=== PATIENT | male | born 1930 | race Caucasian/White ===

== ENCOUNTER 2018-02-10 23:32 | Emergency (ER) | payer OTHER ==
[~2018-02-10] VITALS: Ht 167.6 cm; Wt 83.9 kg
[~2018-02-10 23:32] MED LIST: CRESTOR10 MG PO; GNP THERAPEUTI1 EACH; LEVOTHYROXINE PO; LO-DOSE ASPIRIN81 M1; MEVACOR 20 MG T20 MG; NORCO 5-325 TA1 EACH PO; TYLENOL EX-STR500 M2 PO
[2018-02-11 00:02] LABS: ABSOLUTE BASOPHILS 0.1 thou/uL (0.0-0.2); ABSOLUTE EOSINOPHILS 0.2 thou/uL (0.0-0.7); ABSOLUTE LYMPHOCYTES 2.6 thou/uL (0.8-5.3); ABSOLUTE MONOCYTES 0.9 thou/uL (0.0-1.2); ABSOLUTE NEUTROPHILS 4.6 thou/uL (1.6-8.1); BASOPHILS 1.1 %; HEMATOCRIT 40.1 % (42.0-52.0); HEMOGLOBIN 13.3 gm/dL (14.0-18.0); LYMPHOCYTES 31.2 %; MCH 30.2 pg (26.0-34.0); MCHC 33.3 g/dL (28.0-37.0); MCV 90.5 fL (80.0-100.0); MONOCYTES 10.7 %; MPV 7.4 fl. (7.2-11.1); NUCLEATED RBCS 0 /100WBC; PLATELET COUNT* 245 thou/uL (150-400); RBC 4.43 mil/uL (4.50-6.00); RDW-CV 14.2 % (10.5-14.5); WBC 8.4 thou/uL (4.0-11.0)
[2018-02-11 00:07] LABS: ANION GAP 6 mmol/L (7-16); BUN 30 mg/dL (7-18); CALCIUM 8.9 mg/dL (8.5-10.1); CHLORIDE 95 mmol/L (98-107); CO2 33 mmol/L (21-32); CREATININE 1.1 mg/dL (0.6-1.3); GLUCOSE 103 mg/dL (70-99); POTASSIUM 3.5 mmol/L (3.5-5.1); SODIUM 134 mmol/L (136-145)
[2018-02-11 00:13] LABS: APTT 27.8 Seconds (25.0-31.3); PROTIME 9.9 Seconds (9.20-11.50)
[2018-02-11 00:17] LABS: ALBUMIN 3.8 g/dL (3.4-5.0); ALKALINE PHOSPHATASE 63 U/L (46-116); LIPASE 200 U/L (73-393); NT-PRO BRAIN NAT PEPTIDE 37 pg/mL (<300); SGOT 24 U/L (15-37); SGPT 26 U/L (30-65); TOTAL BILIRUBIN 0.3 mg/dL (<0.1-1.0); TOTAL PROTEIN 7.2 g/dL (6.4-8.2); TROPONIN-I LEVEL <0.06 ng/mL (<0.06)
[2018-02-11] MEDS ORDERED: CARAFATE 1 GM TA1 GM PO (02:37)
[2018-02-11] MEDS ORDERED: ZPAK PO (02:37)
[2018-02-11 03:14] VITALS: BP 171/70
--- NOTE | 2018-02-12 14:40 | EKG ---
[place] [address] ELECTROCARDIOGRAM REPORT Name: WINGNATHANIEL Burciaga Room: [facility]#: [id number] Admission: 02/10/18 Attend Phys: Discharge: 02/11/18 Date of : 34 Report #: [id number] THIS REPORT FOR: //name// [facility] ED Test Date: 2018-02-10 Test Time: 23:36:53 Pat Name: NATHANIEL DIMAS Department: Room: Gender: M Supervisor Cutting Department: FRED : 1930 Requested By: Joslyn Foster Order Number: [id number] MD: Won Castillo Measurements Intervals [place] Rate: 64 P: 26 MN: 175 QRS: 15 QRSD: 104 T: 44 QT: 413 QTc: 426 Interpretive Statements Sinus rhythm Abnormal R-wave progression, early transition Baseline wander in lead(s) II,III,aVF Compared to ECG 05/05/2007 17:49:29 No significant changes Electronically Signed On 02-12-2018 14:40:40 CDT by Won Castillo [email or web address] <ELECTRONICALLY SIGNED> By: Won Castillo MD, [facility] 02/12/18 1440 2336 2336 Won Castillo MD, [facility] /EPI
== END 2018-02-11 03:15 | disposition home or self-care (01) ==
LOC: M.ERS 23:32
PROVIDERS: Personal Emergency Response Attendant
DX: K20.9 Esophagitis, unspecified (principal); J40 Bronchitis, not specified as acute or chronic; E78.5 Hyperlipidemia, unspecified; E03.9 Hypothyroidism, unspecified; Z88.0 Allergy status to penicillin

== ENCOUNTER 2018-06-06 09:27 | Inpatient (IN) | payer OTHER ==
[~2018-06-06] VITALS: Ht 167.6 cm; Wt 88.5 kg
[2018-06-06] VITALS (7 sets, daily range): BP systolic 116–188; BP diastolic 59–79
[~2018-06-06 09:27] MED LIST changes: +CARAFATE 1 GM TA1 GM PO; +ZPAK PO
[2018-06-06] MEDS ORDERED: MOBIC15 MG PO (09:38)
[2018-06-06] MEDS ORDERED: VITAMIN D3400 UNIT PO (09:38)
[2018-06-06] MEDS ORDERED: BAYER CHEWABLE81 MG PO (09:39)
[2018-06-06] MEDS ORDERED: FOLIC ACID1 MG PO (09:39)
[2018-06-06 10:02] LABS: ABSOLUTE BASOPHILS 0.1 thou/uL (0.0-0.2); ABSOLUTE EOSINOPHILS 0.1 thou/uL (0.0-0.7); ABSOLUTE LYMPHOCYTES 1.1 thou/uL (0.8-5.3); ABSOLUTE MONOCYTES 0.5 thou/uL (0.0-1.2); ABSOLUTE NEUTROPHILS 7.9 thou/uL (1.6-8.1); BASOPHILS 0.9 %; EOSINOPHILS 1.1 %; HEMATOCRIT 42.1 % (42.0-52.0); HEMOGLOBIN 13.8 gm/dL (14.0-18.0); LYMPHOCYTES 11.4 %; MCH 29.6 pg (26.0-34.0); MCHC 32.9 g/dL (28.0-37.0); MONOCYTES 5.5 %; MPV 7.6 fl. (7.2-11.1); NUCLEATED RBCS 0 /100WBC; PLATELET COUNT* 258 thou/uL (150-400); POLYS 81.1 %; RBC 4.67 mil/uL (4.50-6.00); RDW-CV 14.3 % (10.5-14.5); WBC 9.7 thou/uL (4.0-11.0)
[2018-06-06 10:16] LABS: ANION GAP 8 mmol/L (7-16); APTT 27.3 Seconds (25.0-31.3); BUN 19 mg/dL (7-18); CALCIUM 9.3 mg/dL (8.5-10.1); CHLORIDE 97 mmol/L (98-107); CO2 33 mmol/L (21-32); CREATININE 1.2 mg/dL (0.6-1.3); GLUCOSE 126 mg/dL (70-99); POTASSIUM 3.4 mmol/L (3.5-5.1); SODIUM 138 mmol/L (136-145)
[2018-06-06 10:25] LABS: ALBUMIN 3.9 g/dL (3.4-5.0); ALKALINE PHOSPHATASE 62 U/L (46-116); LIPASE 126 U/L (73-393); MAGNESIUM 1.7 mg/dL (1.8-2.4); NT-PRO BRAIN NAT PEPTIDE 84 pg/mL (<300); SGOT 23 U/L (15-37); SGPT 29 U/L (30-65); TOTAL BILIRUBIN 0.4 mg/dL (<0.1-1.0); TOTAL PROTEIN 7.4 g/dL (6.4-8.2); TROPONIN-I LEVEL <0.06 ng/mL (<0.06)
--- NOTE | 2018-06-06 17:12 | 2DMMODE ---
[place] [address] 2 D/M-MODE ECHOCARDIOGRAM Name: NATHANIEL DIMAS Patrica Room: [address] IN [facility]#: [id number] Admission: 06/06/18 Attend Phys: Nitin Flores Discharge: Date of : 32 Date of Service: 06/06/18 1712 Report #: [id number] THIS REPORT FOR: //name// APPROVED REPORT Study performed: 06/06/2018 16:22:08 EXAM: Comprehensive 2D, Doppler, and color-flow Echocardiogram Patient Location: In-Patient Room #: [facility] Status: routine BSA: 1.97 HR: 107 bpm BP: 137/59 mmHg Rhythm: NSR Other Information Study Quality: Good Indications Dyspnea 2D Dimensions IVSd: 13.46 (7-11mm) LVOT Diam: 24.26 (18-24mm) LVDd: 47.70 mm PWd: 13.25 (7-11mm) Ascending Ao: 33.60 (22-36mm) LVDs: 22.18 (25-40mm) Aortic Root: 38.57 mm Volumes Left Atrial Volume (Systole) LA ESV Index: 29.80 mL/m2 Aortic Valve AoV Peak Nitesh.: 1.51 m/s AO Peak Gr.: 9.13 mmHg LVOT Max P.04 mmHg AO Mean Gr.: 6.19 mmHg LVOT Mean P.77 mmHg LVOT Max V: 1.50 m/s AO V2 VTI: 30.13 cm LVOT Mean V: 1.00 m/s CHANDLER (VTI): 4.15 cm2 LVOT V1 VTI: 27.08 cm Mitral Valve E/A Ratio: 0.59 MV Decel. Time: 135.13 ms MV E Max Nitesh.: 0.81 m/[place] [address] 2 D/M-MODE ECHOCARDIOGRAM Name: NATHANIEL DIMAS Room: [address] IN [facility].#: [id number] Admission: 06/06/18 Attend Phys: Nitin Flores Discharge: Date of : 32 Date of Service: 06/06/18 1712 Report #: [id number] MV PHT: 39.19 ms MVA (PHT): 5.61 cm2 TDI E/Lateral E': 8.10 E/Medial E': 6.75 Medial E' Nitesh.: 0.12 m/s Lateral E' Nitesh.: 0.10 m/s Pulmonary Valve PV Peak Nitesh.: 1.30 m/s PV Peak Gr.: 6.81 mmHg Left Ventricle The left ventricle is normal size. There is normal LV segmental wall motion. Mild concentric left ventricular hypertrophy. Left ventricular systolic function is normal. The left ventricular ejection fraction is within the normal range. LVEF is >70%. Grade I - abnormal relaxation pattern. Right Ventricle The right ventricle is normal size. The right ventricular systolic function is normal. Atria The left atrium size is normal. The right atrium size is normal. Aortic Valve Mild aortic valve sclerosis. No aortic regurgitation is present. There is no aortic valvular stenosis. Mitral Valve The mitral valve is normal in structure. Trace mitral regurgitation. No evidence of mitral valve stenosis. Tricuspid Valve The tricuspid valve is normal in structure. Unable to assess PA pressure. Trace tricuspid regurgitation. Pulmonic Valve The pulmonary valve is normal in structure. There is no pulmonic valvular regurgitation. Great Vessels The aortic root is normal in size. IVC is normal in size and collapses >50% [place] [address] 2 D/M-MODE ECHOCARDIOGRAM Name: NATHANIEL DIMAS Room: [address]#: [id number] Admission: 06/06/18 Attend Phys: Nitin Flores Discharge: Date of : 32 Date of Service: 06/06/18 1712 Report #: [id number] Pericardium There is no pericardial effusion. <Conclusion> Mild concentric left ventricular hypertrophy. LVEF is >70%. There is normal LV segmental wall motion. Mild aortic valve sclerosis. There is no aortic valvular stenosis. No aortic regurgitation is present. No evidence of mitral valve stenosis. Trace mitral regurgitation. <ELECTRONICALLY SIGNED> By: Reynaldo Kim MD, FACC 06/06/181711 11 11 Reynaldo Kim MD, FACC /INF
[2018-06-06 22:08] LABS: GLYCOHEMOGLOBIN (HGB A1C) 6.5 % (4.8-5.6)
[2018-06-06 22:36] LABS: URINE BILIRUBIN NEGATIVE (Negative); URINE BLOOD TRACE (Negative); URINE CLARITY CLEAR; URINE COLOR YELLOW; URINE GLUCOSE-RANDOM 2+ (Negative); URINE KETONES NEGATIVE (Negative); URINE LEUKOCYTES NEGATIVE (Negative); URINE NITRITE NEGATIVE (Negative); URINE PROTEIN NEGATIVE (Negative); URINE SPECIFIC GRAVITY 1.015 (1.005-1.030); URINE UROBILINOGEN 0.2 E.U./dl (0.2-1.0)
[2018-06-07] VITALS: BP 138/52
[2018-06-07 04:00] VITALS: BP 153/69
[2018-06-07 06:02] LABS: MAGNESIUM 1.9 mg/dL (1.8-2.4)
[2018-06-07 06:04] LABS: POTASSIUM 4.6 mmol/L (3.5-5.1)
[2018-06-07 08:30] VITALS: BP 144/53
--- NOTE | 2018-06-07 10:48 | EKG ---
[place] [address] ELECTROCARDIOGRAM REPORT Name: NATHANIEL DIMAS Patrica Room: [address] ADM IN M.R.#: [id number] Admission: 06/06/18 Attend Phys: Jeyson Huggins Discharge: Date of : 32 Report #: [id number] THIS REPORT FOR: //name// [facility] ED Test Date: 2018-06-06 Test Time: 09:32:51 Pat Name: NATHANIEL DIMAS Department: Room: [facility] Gender: M Enrollment Nurse: : 1930 Requested By: Harley Haynes Order Number: [id number] MD: Fidel Hooper Measurements Intervals [place] Rate: 107 P: 67 NC: 195 QRS: 36 QRSD: 99 T: 45 QT: 334 QTc: 446 Interpretive Statements Sinus tachycardia Probable left atrial enlargement wandering baseline Compared to ECG 02/10/2018 23:36:53 Sinus rhythm no longer present Electronically Signed On 06-07-2018 10:48:14 CDT by Fidel Hooper [email or web address] <ELECTRONICALLY SIGNED> By: Fidel Hooper MD, FAC 06/07/18 1048 0932 0932 Fidel Hooper MD, [facility] /EPI
[2018-06-07 11:41] VITALS: BP 144/64
[2018-06-07 12:36] LABS: BE -1.6 mmol/L (-2 to +3); HCO3 23.3 mmol/L (22.0-26.0); PCO2 39.8 mmHg (35.0-45.0); PO2 109.3 mmHg (75.0-100.0); pH 7.385 (7.340-7.450)
[2018-06-07 16:32] VITALS: BP 151/66
[2018-06-07 19:45] VITALS: BP 162/58
[2018-06-07 21:52] LABS: URINE BILIRUBIN NEGATIVE (Negative); URINE BLOOD TRACE (Negative); URINE CLARITY CLEAR; URINE COLOR YELLOW; URINE GLUCOSE-RANDOM NEGATIVE (Negative); URINE KETONES NEGATIVE (Negative); URINE LEUKOCYTES NEGATIVE (Negative); URINE NITRITE NEGATIVE (Negative); URINE PROTEIN NEGATIVE (Negative); URINE SPECIFIC GRAVITY 1.015 (1.005-1.030); URINE UROBILINOGEN 0.2 E.U./dl (0.2-1.0)
[2018-06-07 22:09] LABS: CREATININE 1.5 mg/dL (0.6-1.3); POTASSIUM 3.9 mmol/L (3.5-5.1)
[2018-06-08] VITALS: BP 146/61
[2018-06-08 03:31] LABS: HEMATOCRIT 36.7 % (42.0-52.0); MCH 29.5 pg (26.0-34.0); MCHC 32.8 g/dL (28.0-37.0); RBC 4.07 mil/uL (4.50-6.00); RDW-CV 14.5 % (10.5-14.5); WBC 16.9 thou/uL (4.0-11.0)
[2018-06-08 03:48] LABS: CALCIUM 7.7 mg/dL (8.5-10.1); CREATININE 1.3 mg/dL (0.6-1.3); POTASSIUM 3.9 mmol/L (3.5-5.1)
[2018-06-08 04:00] VITALS: BP 150/66
[2018-06-08 08:00] VITALS: BP 163/73
[2018-06-08 11:35] VITALS: BP 165/65
--- NOTE | 2018-06-08 12:06 | CON ---
[address] [address] CONSULTATION Name: WINGNATHANIEL Burciaga Room: [address] IN .R.#: [id number] Admission: 06/06/18 Attend Phys: Jeyson Huggins Discharge: Date of : 32 Report #: [id number] THIS REPORT FOR: //name// CC: Fidel Flores DATE OF SERVICE: 06/07/2018 INFECTIOUS DISEASE CONSULTATION ATTENDING PHYSICIAN: Dr. Flores. REASON FOR EVALUATION: Persistent lactic acidemia with suspected etiology due to sepsis, does have a degree of respiratory insufficiency as well with underlying COPD. HISTORY OF PRESENT ILLNESS: Chart reviewed, patient examined. This is an 88-year-old who experienced progressive dyspnea over the course of 12 hours. The evening prior to coming in, noted congestion. He denies any significant chest pain, did have a nonproductive cough as well. He was evaluated including a chest x-ray, which was otherwise unremarkable. He did have an initial lactic acid of 2.1 that has actually peaked at 5.7, later last evening had improved, but again down to 2.1 and had increased to 3.6 and seemed to respond to bolus of fluids. Initial blood cultures were sterile. Urinalysis was generally unremarkable as well. He states he has been feeling poorly. He has had some difficulty with his appetite and early satiety as well. It is not clear if he has had any fevers or chills. He was empirically started on antibiotics with levofloxacin and is not encephalopathic. ALLERGIES: PENICILLIN. CURRENT MEDICATIONS: Include levofloxacin, insulin, atorvastatin, meloxicam, p.r.n. analgesics and antiemetics, zolpidem, aspirin, cholecalciferol, levothyroxine, methylprednisolone. PAST MEDICAL HISTORY: As noted above, history of hypertension, hypothyroidism, hyperlipidemia, reflux. SOCIAL HISTORY: Former smoker. No ethanol. FAMILY HISTORY: Noncontributory. REVIEW OF SYSTEMS: As above. PHYSICAL EXAMINATION: GENERAL: He appears somewhat chronically ill, undernourished. He is pleasant, [place] [address] CONSULTATION Name: NATHANIEL DIMAS Patrica Room: [address]#: [id number] Admission: 06/06/18 Attend Phys: Jeyson Huggins Discharge: Date of : 32 Report #: [id number]. VITAL SIGNS: Temperature 97.6, pulse 99, respirations 18, blood pressure 144/64. SKIN: Warm, dry. No rashes. HEENT: Unremarkable. He is off nasal cannula oxygen. NECK: Supple. LUNGS: Diminished breath sounds. Few scattered crackles at the bases. HEART: Regular. I do not appreciate any murmur. ABDOMEN: Distended, somewhat firm. There are no peritoneal signs. GENITOURINARY: Deferred. RECTAL: Deferred. LABORATORY DATA: As described above, there is pattern of lactic acidemia. Initial CBC: White count 9.7, H and H 13.8 and 42.1, platelets of 258. Electrolytes: Sodium 138, potassium 3.4, chloride 97, bicarbonate is 33, anion gap of 8, BUN and creatinine 19 and 1.2. LFTs unremarkable. Albumin of 3.9, total protein of 7.4. CTA of the chest showed no evidence of PE. Respiratory viral panel is pending. ASSESSMENT: Lactic acidemia. It is not overtly evident as to his driving. We will continue the Levaquin, I think for now as empiric therapy. It would be worthwhile to image his abdomen, seems to have some longstanding symptoms there to exclude an occult process. Apparently, it was noted he has had GI evaluation in the past. Continue to follow the trend at this point. I think any invasive procedures are warranted, follow to discuss with the patient's family. <ELECTRONICALLY SIGNED> By: Cody Lynn MD 06/08/18 1206 1539 [id number] Lynn MD /nt
[2018-06-08 16:02] VITALS: BP 175/83
[2018-06-08 20:00] VITALS: BP 161/80
[2018-06-09] VITALS: BP 175/84
[2018-06-09 02:12] LABS: ADENOVIRUS Negative (Negative); INFLUENZA A Negative (Negative); INFLUENZA B Negative (Negative); METAPNEUMOVIRUS Negative (Negative); PARAINFLUENZA 1 Negative (Negative); PARAINFLUENZA 2 Negative (Negative); PARAINFLUENZA 3 Negative (Negative); RHINOVIRUS Negative (Negative); RSV A Negative (Negative); RSV B Negative (Negative)
[2018-06-09 04:00] VITALS: BP 161/74
[2018-06-09 04:45] LABS: HEMATOCRIT 37.2 % (42.0-52.0); HEMOGLOBIN 12.3 gm/dL (14.0-18.0); MCH 29.7 pg (26.0-34.0); MCV 89.8 fL (80.0-100.0); MPV 7.8 fl. (7.2-11.1); NUCLEATED RBCS 0 /100WBC; PLATELET COUNT* 238 thou/uL (150-400); RBC 4.14 mil/uL (4.50-6.00)
[2018-06-09 04:59] LABS: CALCIUM 8.5 mg/dL (8.5-10.1); CREATININE 1.3 mg/dL (0.6-1.3); POTASSIUM 4.3 mmol/L (3.5-5.1)
[2018-06-09 05:47] LABS: ABSOLUTE LYMPHOCYTES 0.7 thou/uL (0.8-5.3); ABSOLUTE MONOCYTES 0.1 thou/uL (0.0-1.2); ABSOLUTE NEUTROPHILS 12.2 thou/uL (1.6-8.1)
[2018-06-09 05:48] LABS: ANISOCYTOSIS 1+; PLATELET ESTIMATE ADEQUATE; POIKILOCYTOSIS 1+
[2018-06-09 08:25] VITALS: BP 150/61
--- NOTE | 2018-06-09 09:19 | CON ---
[address] [address] CONSULTATION Name: GERMANGARTHNATHANIEL Burciaga Room: [address] IN .R.#: [id number] Admission: 06/06/18 Attend Phys: Jeyson Huggins Discharge: Date of : 32 Report #: [id number] THIS REPORT FOR: //name// CC: Fidel Flores DATE OF SERVICE: 06/08/2018 Nephrology Consultation CONSULTING PHYSICIAN: Nitin Flores MD REASON FOR NEPHROLOGY CONSULTATION: Elevated lactic acid. HISTORY OF PRESENT ILLNESS: This is an 88-year-old male who came and who has past medical history of hypertension and he came in with difficulty breathing. He did not have any signs or symptoms of infection, but he was started on empiric antibiotics in the form of Levaquin. He was also found to have an elevated lactic acid, his initial lactic acid was 2.1, but that went up to 5.7, came down to 2.0 and then went up to 5.5 and then again has gone back to 2.0 now. The patient was treated for possible COPD exacerbation during this admission as well. He was also given some IV fluid initially, which also helped an improvement of the lactic acid. When he came to the hospital, his abdomen was distended and he was not having any bowel movements, but then he started having a lot of bowel movements as well. He is feeling much better now. His creatinine was 1.2 when he came in, went up to 1.5 and then it is again down to 1.3 now and his baseline creatinine could be between 0.9-1.1. He also had IV contrast exposure during this admission. There was also possibility of right renal artery stenosis on his CT scan, but his blood pressures have been well controlled. He also takes meloxicam at home and his EF was 70% with grade 1 diastolic dysfunction. ALLERGIES: PENICILLIN. REVIEW OF SYSTEMS: He is feeling better, his breathing is better, his chest hurts a little bit because of coughing, but otherwise other review of systems had been negative. PAST MEDICAL AND SURGICAL HISTORY: Includes bleeding ulcer, hypertension, repair of torn cartilage, gallbladder removal, gastric reflux, hyperlipidemia, hypothyroidism, hypertension. HOME MEDICATIONS: Include rosuvastatin, cholecalciferol, meloxicam, aspirin, folic acid, and levothyroxine. FAMILY HISTORY: No history of any kidney [place] [address] CONSULTATION Name: NATHANIEL DIMAS Room: [address]#: [id number] Admission: 06/06/18 Attend Phys: Jeyson Huggins Discharge: Date of : 32 Report #: [id number] SOCIAL HISTORY: He is a former smoker. Does not smoke currently or use recreational drugs or use alcohol and lives at home. PHYSICAL EXAMINATION: VITAL SIGNS: Blood pressure is 150/66, respiratory rate is 19, pulse rate is 90, temperature 36.5, and the pulse ox 95% and he is on room air. GENERAL: He is awake and alert and oriented times 3. He is obese. HEENT: Mucous membranes are moist. NECK: There is no JVD. CHEST: Bilaterally clear to auscultation and no crackles or wheezing heard. CARDIOVASCULAR: S1, S2 normal. No murmurs or rubs. ABDOMEN: Actually soft. It is nondistended, nontender and bowel sounds are present. EXTREMITIES: There is maybe trace edema in bilateral lower extremities. NEUROLOGICAL FUNCTION: Gross neurological function is intact. PSYCHIATRIC: Mood and affect seems to be normal. [place] [address], creatinine is 1.3. Bicarb is 28 and sodium is 138 and potassium is 3.9. The labs are reviewed. IMAGING: Various imaging studies were reviewed. ASSESSMENT: 1. 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 Creatinine is currently stable, 1.2-1.3. 2. Elevated lactic acid, likely connected to abdominal symptoms and abdominal distention and it has improved now. 3. Hypertension, blood pressure is controlled, incidental finding of right renal artery stenosis, I do not think we need to pursue further imaging studies for this. 4. History of arthritis. He takes meloxicam almost on a daily basis. 5. Shortness of breath, possible chronic obstructive pulmonary disease exacerbation and he is receiving treatment for that. 6. Leukocytosis, likely connected to steroids. PLAN: 1. Lactic acid, likely connected to his abdominal symptoms, abdominal distention was happening most likely because of constipation and small bowel dilatation can cause elevated lactic acid and the patient is not looking septic. Anyway, I think we need to stop checking the lactic acid at this point. Elevated lactic acid is not connected to his renal function. 2. I will also stop his meloxicam. 3. If his kidney function does not normalize, he can follow up in our office in [address] [address] CONSULTATION Name: NATHANIEL DIMAS Room: [address]#: [id number] Admission: 06/06/18 Attend Phys: Jeyson Huggins Discharge: Date of : 32 Report #: [id number] 2-4 weeks after discharge. Thank you for this consultation and I will discuss the plan with the patient, as well as the patient's nurse and the patient's grandson and we will sign off for now because I do not have any other further recommendations. <ELECTRONICALLY SIGNED> By: Melissa Mondragon MD 06/09/18 0919 0939 [id number] Mondragon MD /nt
[2018-06-09] MEDS ORDERED: CHLORTHALIDONE25 MG PO (11:21)
[2018-06-09] MEDS ORDERED: IPRAT-ALBUT 0.5-3 ML INH (11:22)
[2018-06-09] MEDS ORDERED: LEVAQUIN 500 M500 M1 PO (11:22)
[2018-06-09] MEDS ORDERED: PROTONIX40 M1 PO (11:23)
[2018-06-09] MEDS ORDERED: PREDNISONE 20 M20 MG PO (11:23)
[2018-06-09 12:00] VITALS: BP 162/125
[2018-06-09 12:35] VITALS: BP 162/125
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
== END 2018-06-09 13:08 | disposition home or self-care (01) | DRG 871 ==
LOC: M.ERS 09:27 → M.TBA-ER 11:05 → M.2W 11:05
PROVIDERS: Family Medicine; Internal Medicine; ADMIT Internal Medicine
DX: A41.9 Sepsis, unspecified organism (principal); J96.01 Acute respiratory failure with hypoxia; I50.31 Acute diastolic (congestive) heart failure; J44.1 Chronic obstructive pulmonary disease with (acute) exacerbation; N17.9 Acute kidney failure, unspecified; J45.901 Unspecified asthma with (acute) exacerbation; I13.0 Hypertensive heart and chronic kidney disease with heart failure and stage 1 through stage 4 chronic kidney disease, or unspecified chronic kidney disease; E78.5 Hyperlipidemia, unspecified; E03.9 Hypothyroidism, unspecified; M17.11 Unilateral primary osteoarthritis, right knee; N18.9 Chronic kidney disease, unspecified; J22 Unspecified acute lower respiratory infection; K21.9 Gastro-esophageal reflux disease without esophagitis; Z90.49 Acquired absence of other specified parts of digestive tract; Z88.0 Allergy status to penicillin; Z87.891 Personal history of nicotine dependence; Z87.11 Personal history of peptic ulcer disease; Z85.46 Personal history of malignant neoplasm of prostate; Z80.1 Family history of malignant neoplasm of trachea, bronchus and lung; Z82.49 Family history of ischemic heart disease and other diseases of the circulatory system; Z79.899 Other long term (current) drug therapy; Z23 Encounter for immunization

== ENCOUNTER → 2018-09-15 | Outpatient (CLI) | payer OTHER ==
[~2018-09-15] MED LIST changes: +BAYER CHEWABLE81 MG PO; +CHLORTHALIDONE25 MG PO; +FOLIC ACID1 MG PO; +IPRAT-ALBUT 0.5-3 ML INH; +LEVAQUIN 500 M500 M1 PO; +MOBIC15 MG PO; +PREDNISONE 20 M20 MG PO; +PROTONIX40 M1 PO; +VITAMIN D3400 UNIT PO
== END ==
LOC: M.MRI 12:46
DX: M47.897 Other spondylosis, lumbosacral region (principal); M51.26 Other intervertebral disc displacement, lumbar region; M54.32 Sciatica, left side

== ENCOUNTER 2019-06-26 06:01 | Inpatient (IN) | payer OTHER ==
[~2019-06-26] VITALS: Ht 167.6 cm; Wt 93.1 kg
[2019-06-26 06:02] VITALS: BP 181/66
[2019-06-26] MEDS ORDERED: LEVO-T50 MCG PO (06:17)
[2019-06-26] MEDS ORDERED: FLORICAL CAPSU1 EACH PO (06:18)
[2019-06-26 06:21] LABS: ABSOLUTE EOSINOPHILS 0.1 thou/uL (0.0-0.7); ABSOLUTE LYMPHOCYTES 2.1 thou/uL (0.8-5.3); ABSOLUTE MONOCYTES 0.7 thou/uL (0.0-1.2); ABSOLUTE NEUTROPHILS 6.5 thou/uL (1.6-8.1); BASOPHILS 0.5 %; EOSINOPHILS 1.4 %; HEMATOCRIT 41.4 % (42.0-52.0); HEMOGLOBIN 13.8 gm/dL (14.0-18.0); LYMPHOCYTES 22.4 %; MCH 30.3 pg (26.0-34.0); MCHC 33.2 g/dL (28.0-37.0); MCV 91.3 fL (80.0-100.0); MPV 7.7 fl. (7.2-11.1); NUCLEATED RBCS 0 /100WBC; PLATELET COUNT* 221 thou/uL (150-400); POLYS 68.7 %; RBC 4.54 mil/uL (4.50-6.00); RDW-CV 14.9 % (10.5-14.5); WBC 9.5 thou/uL (4.0-11.0)
[2019-06-26 06:32] LABS: CREATININE 1.3 mg/dL (0.6-1.3); POTASSIUM 4.3 mmol/L (3.5-5.1)
[2019-06-26 06:33] LABS: PROTIME 9.9 Seconds (9.20-11.50)
[2019-06-26 06:47] LABS: ALBUMIN 3.8 g/dL (3.4-5.0); TOTAL BILIRUBIN 0.3 mg/dL (<0.1-1.0); TOTAL PROTEIN 6.8 g/dL (6.4-8.2)
[2019-06-26 08:49] VITALS: BP 125/59
[2019-06-26 09:00] VITALS: BP 167/56
--- NOTE | 2019-06-26 11:16 | EKG ---
[place] [address] ELECTROCARDIOGRAM REPORT Name: WINGNATHANIEL Burciaga Room: [address] ADM IN M.R.#: [id number] Admission: 06/26/19 Attend Phys: Svetlana Moreno Discharge: Date of : 32 Report #: [id number] THIS REPORT FOR: //name// [facility] ED Test Date: 2019-06-26 Test Time: 06:28:34 Pat Name: NATHANIEL DIMAS Department: Room: [facility] Gender: M Export Packer: JOSE : 1930 Requested By: Brooke Gonzáles Order Number: [id number] MD: Won Castillo Measurements Intervals [place] Rate: 102 P: 31 [place]: 191 QRS: 14 QRSD: 87 T: 1 QT: 383 QTc: 499 Interpretive Statements Sinus tachycardia Nonspecific ST-T wave abnormality Compared to ECG 06/06/2018 09:32:51 No significant changes Electronically Signed On 06-26-2019 11:15:48 [employer]ORE WORKING SUPERVISOR by Won Castillo [email or web address] <ELECTRONICALLY SIGNED> By: Won Castillo MD, [facility] 06/26/19 1115 0628 0628 Won Castillo MD, [facility] /EPI
[2019-06-26 13:58] LABS: URINE BILIRUBIN NEGATIVE (Negative); URINE BLOOD 1+ (Negative); URINE CLARITY CLEAR; URINE COLOR YELLOW; URINE GLUCOSE-RANDOM 3+ (Negative); URINE KETONES NEGATIVE (Negative); URINE LEUKOCYTES-REFLEX NEGATIVE (Negative); URINE NITRITE-REFLEX NEGATIVE (Negative); URINE PROTEIN NEGATIVE (Negative); URINE UROBILINOGEN 0.2 E.U./dl (0.2-1.0)
[2019-06-26 14:09] LABS: BACTERIA-REFLEX None Seen /HPF (None Seen); SQUAMOUS NONE SEEN /LPF (0-3); URINE RBC None Seen /HPF (0-2); URINE WBC-REFLEX None Seen /HPF (0-5)
[2019-06-26 14:10] LABS: CASTS None Seen /LPF (None Seen); CRYSTALS None Seen /LPF (None Seen)
[2019-06-26 14:20] LABS: INFLUENZA A ANTIGEN Negative (Negative); INFLUENZA B ANTIGEN Negative (Negative)
[2019-06-26 17:23] VITALS: BP 159/64
--- NOTE | 2019-06-26 19:30 | NUR ---
RECEIVED REPORT FROM ER. PT ARRIVED TO TELE FLOOR AROUND 0900. PT A&O X4. VSS. ADMISSION ASSESSMENT, HISTORY AND VITALS COMPLETED CHARTED. 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 IV INTACT. MEDS PER EMAR. PT ORIENTED TO ROOM BED AND CALL LIGHT. PT COMMUNICATES UNDERSTANDING. PT HAD FAMILY WITH HIM MOST OF THE SHIFT. PT TO DC IN THE AM - NEEDS TO LEAVE EARLY TO MAKE IT TO AN AFTERNOON PODIATRY APPT. PT CURRENTLY RESTING IN BED. CALL LIGHT IS WITHIN REACHING. FALL PRECAUTIONS IN PLACE. HOURLY ROUNDIN PERFORMED.
[2019-06-26 20:00] VITALS: BP 140/60
[2019-06-27] VITALS: BP 125/57
[2019-06-27 04:00] VITALS: BP 114/42
[2019-06-27 04:48] LABS: HEMATOCRIT 35.5 % (42.0-52.0); HEMOGLOBIN 11.9 gm/dL (14.0-18.0); MCH 30.5 pg (26.0-34.0); MCHC 33.6 g/dL (28.0-37.0); MCV 90.9 fL (80.0-100.0); MPV 7.7 fl. (7.2-11.1); NUCLEATED RBCS 0 /100WBC; PLATELET COUNT* 217 thou/uL (150-400); RDW-CV 14.9 % (10.5-14.5); WBC 15.7 thou/uL (4.0-11.0)
--- NOTE | 2019-06-27 04:52 | NUR ---
ASSUMED CARE OF PT AT 1900, PT IN BED WITH FAMILY AT BEDSIDE. NO C/O PAIN OR DISCOMFORT NOTED BY PT. NO SIGNS NO DISTESS. PT ABLE TO SLEEP MAJORITY OF SHIFT. PLANNING FOR DISCHARGE EARLY AM PT HAS APPOINTMENT TOMORROW AFTERNOON. CURRENTLY ASLEEP WITH CALL LIGHT WITHIN REACH.
[2019-06-27 05:38] LABS: ANION GAP 9 mmol/L (7-16); BUN 27 mg/dL (7-18); CALCIUM 8.3 mg/dL (8.5-10.1); CHLORIDE 99 mmol/L (98-107); CO2 29 mmol/L (21-32); CREATININE 1.3 mg/dL (0.6-1.3); GLUCOSE 178 mg/dL (70-99); POTASSIUM 3.5 mmol/L (3.5-5.1); SODIUM 137 mmol/L (136-145); TROPONIN-I LEVEL <0.06 ng/mL (<0.06)
[2019-06-27 06:20] LABS: ABSOLUTE LYMPHOCYTES 0.9 thou/uL (0.8-5.3); ABSOLUTE MONOCYTES 0.9 thou/uL (0.0-1.2); ABSOLUTE NEUTROPHILS 13.8 thou/uL (1.6-8.1); ANISOCYTOSIS 1+; PLATELET ESTIMATE ADEQUATE; POIKILOCYTOSIS 1+
[2019-06-27 08:00] VITALS: BP 147/65
[2019-06-27 10:31] VITALS: BP 147/65
[2019-06-27] MEDS ORDERED: TESSALON PERLE100 MG PO (10:38)
[2019-06-27] MEDS ORDERED: PREDNISONE 10 M10 M1 PO (10:44)
[2019-06-27] MEDS ORDERED: LEVAQUIN 500 M500 M3 PO (10:46)
[2019-06-27] MEDS ORDERED: PROTONIX40 M2 PO (10:47)
[2019-06-27] MEDS ORDERED: VENTOLIN HFA INH8 GM INH (11:01)
[2019-06-27] MEDS ORDERED: MUCINEX600 MG PO ×2 (11:06→11:07)
--- NOTE | 2019-06-27 11:22 | NUR ---
Pt is A&O. Resides at home alone. Active and independent. No DME. No hx of HH or SNF. Supportive family. Pt discharging home today. No needs.
--- NOTE | 2019-06-27 11:57 | NUR ---
ASSUMED CARE OF PATIENT THIS AM AT 0730. PATIENT IS ALERT AND ORIENTED X 4. DR IN TO ROUND AND DISCHARGE ORDERS WRITTEN. PATIENT GIVEN DISCHARGE INSTRUCTIONS CARENOTES AN FOLLOWUP INSTRUCTIONS. PATIENT DISCHARGED TO HOME WITH BELONGINGS. SALINE LOCK AND TELE MONITOR DISCONTINUED.
== END 2019-06-27 11:30 | disposition home or self-care (01) | DRG 189 ==
LOC: M.ERS 06:01 → M.TBA-ER 07:03 → M.2W 07:03
PROVIDERS: Emergency Medicine; Internal Medicine; ADMIT Family Medicine
DX: J96.01 Acute respiratory failure with hypoxia (principal); R65.11 Systemic inflammatory response syndrome (SIRS) of non-infectious origin with acute organ dysfunction; J44.1 Chronic obstructive pulmonary disease with (acute) exacerbation; J44.0 Chronic obstructive pulmonary disease with (acute) lower respiratory infection; E87.2 Acidosis; J96.02 Acute respiratory failure with hypercapnia; K21.9 Gastro-esophageal reflux disease without esophagitis; J20.9 Acute bronchitis, unspecified; T38.0X5A Adverse effect of glucocorticoids and synthetic analogues, initial encounter; E11.9 Type 2 diabetes mellitus without complications; R00.0 Tachycardia, unspecified; E03.9 Hypothyroidism, unspecified; I10 Essential (primary) hypertension; E78.5 Hyperlipidemia, unspecified; Z90.49 Acquired absence of other specified parts of digestive tract; Z79.82 Long term (current) use of aspirin; Z88.0 Allergy status to penicillin; Z79.899 Other long term (current) drug therapy; Z87.891 Personal history of nicotine dependence; Z82.49 Family history of ischemic heart disease and other diseases of the circulatory system; Z79.84 Long term (current) use of oral hypoglycemic drugs; Y92.89 Other specified places as the place of occurrence of the external cause

== ENCOUNTER → 2021-02-04 | Outpatient (CLI) | payer OTHER ==
[~2021-02-04] MED LIST changes: +FLORICAL CAPSU1 EACH PO; +LEVAQUIN 500 M500 M3 PO; +LEVO-T50 MCG PO; +MUCINEX600 MG PO; +PREDNISONE 10 M10 M1 PO; +PROTONIX40 M2 PO; +TESSALON PERLE100 MG PO; +VENTOLIN HFA INH8 GM INH
== END ==
LOC: M.LAB 05:11
PROVIDERS: ATTEND Anesthesiology
DX: E87.6 Hypokalemia (principal)